=== PATIENT | male | born 1970 | race Caucasian/White ===

== ENCOUNTER → 2019-07-16 | Day surgery (SDC) | payer BC ==
[~2019-07-16] MED LIST: Lactated Ringers 1,000 ML IV SCH; Propofol 200 MG/20 ML SDV IV ONE
--- NOTE | 2019-07-16 12:03 | OR ---
DATE OF OPERATION: 07/16/2019 PREOPERATIVE DIAGNOSIS: SCREENING COLONOSCOPY. POSTOPERATIVE DIAGNOSIS: SCREENING COLONOSCOPY. SURGEON: Abel Martinez MD PROCEDURE: FULL-LENGTH COLONOSCOPY WITH FORCEPS POLYP REMOVAL X4. ANESTHESIA: MAC via FRONT SIGHT ATTACHER. COMPLICATIONS: None. SPECIMEN: Four small sessile polyps, distal colon. FINDINGS: 1. Full-length colonoscopy. 2. Four small 3 to 4 mm sessile polyps, rectosigmoid and rectum. RECOMMENDATIONS: Followup colonoscopy in 5 years. INDICATIONS: The patient was seen by his primary physician. He was sent for a screening colonoscopy due to his age. DESCRIPTION OF PROCEDURE: The patient was prepped and draped, placed in the left lateral decubitus position. A lubricated Olympus colonoscope was inserted and easily advanced to the cecum. Direct visualization of the ileocecal valve and appendiceal orifice was accomplished. The bowel prep was marginal. There were many areas of volume of stool which was particulate and then we had wonderful stretches where we could get see well, but there were skip areas, where it was just difficult to see. Upon withdrawal, the right transverse and descending colons appeared completely benign. In the sigmoid area, the patient had no obvious polyps, mass, ulceration, or bleeding sites. No vascular abnormalities or signs of colitis. There were no diverticula. At the rectosigmoid junction, around 25 cm, the patient had 2 small 3 to 4 mm sessile polyps, both removed with forceps in their entirety. The rectal vault had 2 small sessile polyps as well; one was a little bit larger, may be 4 mm, took 3 separate biopsies to remove it and the other one was smaller, removed as well. Retroflexion of the scope in the rectum showed no perianal lesions. Air was suctioned and scope was removed without complication. HUMAIRA/KEYLA /[id number] CC: [place] [id number]
== END ==
LOC: CC.SDS 07:33
PROVIDERS: ATTEND Family Medicine
DX: Z12.11 Encounter for screening for malignant neoplasm of colon (principal); K63.5 Polyp of colon; K62.1 Rectal polyp; E11.9 Type 2 diabetes mellitus without complications; E03.9 Hypothyroidism, unspecified
CPT/HCPCS: 45380; J2704; J7120